=== PATIENT | male | born 1955 | race Caucasian/White ===

== ENCOUNTER 2024-07-17 08:46 | Outpatient (CLI) | payer MEDICARE, OTHER ==
[2024-07-17 09:56] VITALS: PULSE 70; RESP 15; O2SAT 96
== END 2024-07-17 23:59 | disposition home or self-care (01) ==
LOC: RT 08:46
PROVIDERS: ATTEND Physician Assistant
DX: Z22.7 Latent tuberculosis (principal); F17.210 Nicotine dependence, cigarettes, uncomplicated
CPT/HCPCS: 94010; 94729; 94760

== ENCOUNTER 2025-04-02 14:41 | Outpatient (CLI) | payer MEDICARE, OTHER ==
--- NOTE | 2025-04-02 16:32 | RADIOLOGY REPORT ---
Indication: SOLITARY PULMONARY NODULE,COUGH Technique: CT axial images of the chest are obtained without contrast. Coronal and sagittal reformats were obtained. Radiation Dose Information: CTDI volume is 16.4 mGy. Dose-length product is 641 mGy*cm Comparison: None FINDINGS: The trachea is patent. No pneumothorax. 5 mm Left upper lobe solid nodule. 5 mm left upper lobe sub pleural nodule. Mild bilateral tree-in-bud nodularity. Coronary artery calcification disease. Aortic atherosclerotic disease. No supraclavicular or axillary lymphadenopathy. 2.9 cm right renal cyst. There is no aggressive osseous process. Ginx-ds-ombmhmwy thoracic degenerative disc disease. IMPRESSION: Limited evaluation without contrast. Left upper lobe pulmonary nodules up to 5 mm. lung rads 2. Recommend low-dose chest CT in 12 months Mild bilateral tree-in-bud nodularity which can be secondary to atypical infection, bronchiolitis, aspiration changes. Coronary artery calcification disease. Other findings as described.
== END 2025-04-02 23:59 | disposition home or self-care (01) ==
LOC: RAD 14:41
PROVIDERS: ATTEND Physician Assistant
DX: R91.8 Other nonspecific abnormal finding of lung field (principal); R05.9 Cough, unspecified; I25.10 Atherosclerotic heart disease of native coronary artery without angina pectoris; I70.0 Atherosclerosis of aorta; N28.1 Cyst of kidney, acquired; M51.34 Other intervertebral disc degeneration, thoracic region; Z12.2 Encounter for screening for malignant neoplasm of respiratory organs
CPT/HCPCS: 71250